=== PATIENT | female | born 1985 | race Hispanic/Latino ===

== ENCOUNTER 2024-03-14 12:47 | Emergency (ER) | payer BC, MEDICAID ==
[~2024-03-14] VITALS: Ht 165.1 cm; Wt 90.3 kg
[~2024-03-14 12:47] MED LIST: PREN1TAB26 PO; PREN1TAB80 PO
[2024-03-14 13:06] VITALS: BP 120/82; PULSE 110; RESP 16; TEMP 98.2; O2SAT 100
[2024-03-14] MEDS: 0.9%NACL 1000ML 1,000 ML IV ONE (13:21)
[2024-03-14] MEDS: ketOROlac 15MG/ML VIAL (15MG/ML) IV ONE (13:22)
[2024-03-14 13:27] LABS: COVID19 (SARS ANTIGEN RAPID) PRESUMPTIVE NEGATIVE (NEGATIVE); INFLUENZA TYPE B Negative For Type B (NEGATIVE)
[2024-03-14 13:35] LABS: INFLUENZA TYPE A Positive For Type A (NEGATIVE)
[2024-03-14 13:52] LABS: BASOPHILS # (AUTO) 0.02 K/uL (0.00-0.20); BASOPHILS % (AUTO) 0.2 % (0.0-5.0); EOSINOPHILS # (AUTO) 0.01 K/uL (0.00-0.70); EOSINOPHILS % (AUTO) 0.1 % (0.0-8.0); HEMATOCRIT 41.1 % (36-48); IMMATURE GRANULOCYTE ABSOLUTE 0.13 K/uL (0-1); LYMPHOCYTES # (AUTO) 0.9 K/uL (1.0-4.8); LYMPHOCYTES % (AUTO) 7.3 % (21.0-51.0); MEAN CORPUSCULAR HEMOGLOBIN 29.3 pg (27.0-33.0); MEAN CORPUSCULAR HGB CONC 33.3 g/dL (32.0-36.0); MONOCYTES # (AUTO) 1.1 K/uL (0.1-1.0); MONOCYTES % (AUTO) 9.3 % (3.0-13.0); NEUTROPHILS # (AUTO) 10.1 K/uL (1.8-7.7); PLATELET COUNT (AUTO) 313 K/uL (130-400); RED BLOOD CELL COUNT(AUTO) 4.67 MIL/uL (4.00-5.50); RED CELL DISTRIBUTION WIDTH 15.2 % (11.0-15.5); WHITE BLOOD COUNT (AUTO) 12.3 K/uL (4.8-10.8)
[2024-03-14 14:08] LABS: CREATININE 0.8 mg/dL (0.5-1.0); POTASSIUM 3.6 mmol/L (3.5-5.1)
== END 2024-03-14 15:16 | disposition home or self-care (01) ==
LOC: EDH 12:47
DX: J06.9 Acute upper respiratory infection, unspecified (principal); E86.0 Dehydration; Z20.822 Contact with and (suspected) exposure to COVID-19
CPT/HCPCS: 99284; 96374; 71045; 87426; 80048; 85025; 87804 ×2; 36415; J7030; J1885